=== PATIENT | male | born 1975 | race Caucasian/White ===

== ENCOUNTER 2023-05-25 14:29 | Emergency (ER) | payer OTHER ==
[~2023-05-25] VITALS: Ht 195.5 cm; Wt 97.5 kg
== END 2023-05-25 21:25 | disposition left against medical advice (07) ==
LOC: ED 14:29
DX: H53.8 Other visual disturbances (principal); H53.149 Visual discomfort, unspecified; Z53.21 Procedure and treatment not carried out due to patient leaving prior to being seen by health care provider